=== PATIENT | male | born 1945 | race Caucasian/White ===

== ENCOUNTER 2017-07-14 11:32 | Day surgery (SDC) | payer MEDICARE, BC ==
[~2017-07-14] VITALS: Ht 180.3 cm; Wt 114.0 kg
[2017-07-14] MEDS ORDERED: DEXL60CA2 PO (13:18)
[2017-07-14] MEDS ORDERED: UBID30CA12 PO (13:18)
[2017-07-14] MEDS ORDERED: HYD25 PO (13:18)
[2017-07-14] MEDS ORDERED: METO-429 PO (13:18)
[2017-07-14] MEDS ORDERED: ATOR40TA68 PO (13:18)
[2017-07-14] MEDS ORDERED: RAMI10CA48 PO (13:18)
[2017-07-14] MEDS ORDERED: IBUP200C11 PO (13:18)
[2017-07-14 13:21] VITALS: Ht 180.3 cm; Wt 114.0 kg
[2017-07-14 13:43] VITALS: BP 139/84; PULSE 54; RESP 16
[2017-07-14] MEDS ORDERED: PROPOFOL 40 ML ONE (13:43)
--- NOTE | 2017-07-14 14:22 | OPPN ---
Date/Time of Note Date/Time of Note DATE: 07/14/17 TIME: 14:20 Operative Report Preoperative Diagnosis Chronic heartburn History of colon polyps Postoperative Diagnosis Hiatal hernia Reflux esophagitis with erosions Gastritis with erosions Operation/Procedure Performed Esophagogastroduodenoscopy and biopsy Colonoscopy Provider: EVELYN VERMA MD Anesthesia Type: MAC Estimated blood loss: none Transfusion Required: no Specimens Gastric mucosal biopsy Grafts/Implants: none Complications: no EVELYN VERMA MD Jul 14, 2017 14:22
[2017-07-14] MEDS ORDERED: PROPOFOL 20 ML ONE ×2 (14:23)
[2017-07-14 14:50] VITALS: BP 117/74; PULSE 55; RESP 14
--- NOTE | 2017-07-14 16:16 | GILP ---
DATE OF PROCEDURE: 07/14/2017 PROCEDURES PERFORMED: 1. Esophagogastroduodenoscopy and biopsy. 2. Colonoscopy. SURGEON: Jammie Hunter MD. PREOPERATIVE DIAGNOSES: 1. Chronic heartburn. 2. History of colon polyps. POSTOPERATIVE DIAGNOSES: 1. Hiatal hernia. 2. Reflux esophagitis with erosions. 3. Gastritis with erosions. 4. Gastric mucosal biopsies were taken for Helicobacter pylori test. 5. Colonoscopy all the way to the cecum. 6. Occasional diverticulosis of the colon. 7. Internal hemorrhoids. 8. No colon neoplasm was identified. INDICATION: Mr. Stoney Umaña is a 71-year-old male patient who had chronic heartburn not responding to therapy. The patient also had a history of colon polyps and his last colonoscopy was more than 5 years ago, so the patient needed a screening colonoscopy. The procedures and possible complications were well explained to the patient. He understood and consented to the procedures. DESCRIPTION OF PROCEDURE: Under the influence of anesthesia, the gastroscope was carefully introduced into the esophagus. Under direct vision, it was advanced to the stomach, into the pylorus, into the duodenal bulb, and descending duodenum. Findings: 1. Esophagus: The patient had a hiatal hernia with reflux esophagitis and erosions. 2. Stomach: The patient had gastritis with erosions. Gastric mucosal biopsies were taken for Helicobacter pylori test. 3. Duodenum was normal. The colonoscope was carefully introduced in the rectum. Under direct vision, it was advanced all the way to the cecum. Findings: The patient had mild diverticulosis of the colon. He also had internal hemorrhoids. No colon neoplasm was identified. He tolerated the procedures very well. There was no complication from the procedures. At the end of procedure, he was awake with stable vital signs and he was discharged home in care of his family. IMPRESSION: Please see postoperative diagnoses. PLAN: 1. Continue Dexilant. 2. Await H pylori test report. 3. Next screening colonoscopy in 10 years. Dictated By: MD SALOME Zabala/brady/abdi /Document#: [id number]
== END 2017-07-14 15:30 | disposition home or self-care (01) ==
LOC: GIL 11:32
PROVIDERS: ATTEND Internal Medicine Gastroenterology
DX: Z12.11 Encounter for screening for malignant neoplasm of colon (principal); R12 Heartburn; Z86.010 Personal history of colon polyps; K44.9 Diaphragmatic hernia without obstruction or gangrene; K21.0 Gastro-esophageal reflux disease with esophagitis; K29.70 Gastritis, unspecified, without bleeding; K25.9 Gastric ulcer, unspecified as acute or chronic, without hemorrhage or perforation; K57.30 Diverticulosis of large intestine without perforation or abscess without bleeding; K64.8 Other hemorrhoids; K22.10 Ulcer of esophagus without bleeding; E78.5 Hyperlipidemia, unspecified
CPT/HCPCS: 87081

== ENCOUNTER 2017-12-17 04:41 | Emergency (ER) | END 2017-12-18 16:15 | disposition home or self-care (01) ==